=== PATIENT | male | born 1950 | race Caucasian/White ===

== ENCOUNTER 2025-06-09 23:00 | Inpatient (IN) | payer MEDICARE, BC, SELFPAY ==
[2025-06-09 20:56] VITALS: BP 150/137
[2025-06-09 20:57] VITALS: BP 150/137
[2025-06-09 21:02] LABS: Glucose - Point of Care 155 mg/dl (70-99)
--- NOTE | 2025-06-09 21:09 | ED.GENMED ---
History of Present Illness
<Maynor Pablo PA-C - Last Filed: 06/10/25 00:04>
General
Chief Complaint: Blood Sugar Problem
Source: patient and ambulance crew
Time Seen by Provider: 06/09/25 21:02
History of Present Illness
History of Present Illness:
75-year-old male with past medical history of hypertension, hyperlipidemia, insulin-dependent diabetes presenting to the ER for evaluation with EMS after a passerby found him on the ground, estimated to have been on the ground for about 4 to 4-1/2
hours, EMS noted patient to be very cold to the touch, had an initial blood sugar of 25, administered 25 mg dextrose with improvement of his blood sugars, patient states the last thing that he does remember is doing yard work outside but at present
time is no other concerns. Patient will answer most questions appropriately albeit his answers are very abrupt and 1-2 words only. Patient lives alone, notes that he does not have any family that is local. Patient denies any headaches, focal
weakness or numbness, extremity related complaints, abdominal pain, nausea, vomiting, chest pain or shortness of breath or any other concerns.
Past History
<Maynor Pablo PA-C - Last Filed: 06/10/25 00:04>
Past History
ED Past Medical History: HTN, Hypercholesterolemia and IDDM
ED Past Surgical History: Orthopedic and Tonsilectomy
Social History
Tobacco: Non-smoker
Alcohol: None
Drug: None
Personal: Single
Living: alone
Review of Systems
<Maynor Pablo PA-C - Last Filed: 06/10/25 00:04>
Review of Systems
All Other Systems: ROS reviewed and negative except as documented in HPI and ROS
Phy Exam
<Maynor Pablo PA-C - Last Filed: 06/10/25 00:04>
Physical Exam
Physical Exam:
GENERAL: Alert , in no apparent distress
EYE: clear conjunctiva b/l
HEAD: Abrasion just above the left eyebrow, dried blood but no active bleeding
ENT: o/p clr, mmm.
CARDIAC: bradycardic rate, regular rhythm
LUNGS: Clear breath sounds bilaterally, no acute respiratory distress, no wheezes/rales/rhonchi
ABDOMEN: Soft, without focal tenderness, no r/g, no cvat, negative Chen sign, no tenderness at McBurney's point
NEUROLOGICAL: Alert and oriented
SKIN: Warm and dry, skin intact. Older appearing area of ecchymosis to the right buttock, patient noted that he did fall previously but unable to tell us when
MUSCULOSKELETAL: No edema, well perfused.
PSYCH: Normal and appropriate interaction.
Scores
<Maynor Pablo PA-C - Last Filed: 06/10/25 00:04>
Heart Failure Risk
Heart Failure Risk Score: Not Applicable
Heart Score for Chest Pain Patients
STEMI patient?: Not applicable
Withdrawal Assessment of Alcohol
Withdrawal Assessment Completed?: Not applicable
Course
<Maynor Pablo PA-C - Last Filed: 06/10/25 00:04>
Orders/Labs/Results
Orders:
Orders
06/09/25 Dinner
Regular
At Your Request: Limited Participation
Does patient need a safe tray?: No
06/09/25 21:07
Patricia Hugger [Patricia Hugger-Treatment] ONCE
Patient's goal temperature:: 97 F
Additional Instructions:: Temperature and skin assessment per unit protocol
06/09/25 21:08
CT Head W/o Iv Contrast Urgent
Comment:
Reason For Exam: AMS, found on ground
CR Chest Portable - 1 View Urgent
Comment:
Reason For Exam: AMS, found on ground
Reason Study Needs to be Portable: Other
06/09/25 21:10
Electrocardiogram (*1) Urgent
Reason for Study: Bradycardia / Tachycardia
EKG- Treatment ONCE
06/09/25 21:15
CPK [Creatine Phosphokinase] Urgent
Complete Blood Count/With Diff Urgent
Comprehensive Metabolic Panel Urgent
Lactic Acid Q4H
Comment: CANCEL 2nd LACTIC ACID IF 1st LACTIC ACID IS LESS THAN 2
Magnesium Urgent
PTT Urgent
Prothrombin Time Urgent
TSH Urgent
Troponin I Urgent
Blood Culture Q30M
VICENTE Source: Blood/Venous
Specimen Description:
Blood Culture Q30M
VICENTE Source: Blood/Venous
Specimen Description:
06/09/25 22:29
Urinalysis Reflex To Culture Urgent
Date Specimen was Collected: 06/09/25
Time Specimen was Collected: 22:07
Urine Microscopic Reflex Cult Urgent
Urine Culture Urgent
VICENTE Source: U
Specimen Description:
Date Specimen was Collected: 06/09/25
Time Specimen was Collected: 22:07
06/09/25 22:30
Admit/Transfer Patient As Directed
Co-Sign Provider:
Level of Care: Inpatient admission
Assign to:: Telemetry
Physician / Group: lucie
Diagnosis: hypoglycemia
Reason for Telemetry: Arrhythmia
Date to Stop Telemetry: 06/12/25
Time to Stop Telemetry: 11:00
Reason for Hospitalization: hypoglycemia
Expected length of stay greater than two midnights?: Yes
ELOS- Estimated Length of Stay in days: 2
I certify the patient meets the requirements for IP care: Yes
Code Status As Directed
Resuscitation Status: Full Code
PRN Pain Medication Management As Directed
May give lesser potent ordered pain med per pt: Yes
preference::
Protocol:: Medication orders for pain may be administered in a
manner that supports deferring to patient preference
when the pt is:
- Requesting an ordered lesser potent pain medication.
Least to most potent pain medications are defined
as: acetaminophen < NSAID < tramadol < opioids
(morphine, oxycodone, hydromorphone).
- Requesting a lesser dose of the same medication IF
ORDERED.
- Requesting a less intrusive route of administration
if both routes are prescribed by the provider (PO <
IV).
06/09/25 22:32
0.9% Sodium Chloride 500 ml [Nss] 500 ml IV BOLUS
06/09/25 23:00
Flush (0.9% Sodium Chloride) [Flush (Nss)] See Dose Instructions IV PER PROTOCOL
06/09/25 23:39
0.9% Sodium Chloride 1000 ml [Nss] 1,000 ml IV 100 mls/hr
06/09/25 23:39
Diabetes Management by Nurse Practitioner Routine
Consulting Provider: Yue Marks
Was provider already notified?: No
Reason for Consult: Insulin Recommendation
Accucheck [Bedside Glucose Monitoring] As Directed
Frequency: q4h
Activity As Directed
Activity Level: As Tolerated
Vital Signs As Directed
Frequency: Per unit guidelines
DX Deep Vein Thrombosis Video Routine
06/10/25 06:00
Complete Blood Count/With Diff IN AM
Comprehensive Metabolic Panel IN AM
06/10/25 08:00
Heparin 5,000 units SC Q12
06/12/25 11:00
DC Protocol for Telemetry ONCE
Abnormal Lab Results
06/09/25 06/09/25 06/09/25
21:00 21:15 22:29
WBC 10.9 H 10^3/uL
(4.8-10.8)
RBC 4.64 L 10^6/uL
(4.70-6.10)
MCHC 32.4 L g/dL
(33.0-37.0)
Abs Immat Gran (auto) 0.1 H 10^3/uL
(0-0.05)
Absolute Neuts (auto) 8.4 H 10^3/uL
(1.4-6.5)
Absolute Monos (auto) 0.7 H 10^3/uL
(0.1-0.6)
Immature Gran % 0.6 H %
(0-0.5)
Neutrophils % 77.6 H %
(42.2-75.2)
Lymphocytes % 13.1 L %
(20.5-51.1)
BUN 32 H mg/dl
(9-20)
Creatinine 1.4 H mg/dL
(0.7-1.3)
Glucose 187 H mg/dl
(70-99)
Alkaline Phosphatase 190 H U/L
(38-126)
TSH 0.04 L uIU/ml
(0.47-4.68)
Urine Ketones 1+ A
(Negative)
Leukocyte Esterase Rfl 1+ A
(Negative)
Urine Bacteria (Reflex) Moderate A
(Negative)
Urine Glucose 2+ A
(Negative)
Urine Albumin (Reflex) 2+ A
(Neg - Trace)
POC Glucose 155 H mg/dl
(70-99)
06/09/25 21:15
06/09/25 21:15
Vital Signs
Initial and Last Documented VS:
Initial Vital Signs
Temp Pulse Resp BP Pulse Ox
91.3 F L 50 17 150/137 90
06/09/25 20:56 06/09/25 20:56 06/09/25 20:56 06/09/25 20:56 06/09/25 20:56
Last Documented Vital Signs
Temp Pulse Resp BP Pulse Ox
97.3 F 51 14 120/60 97
06/09/25 23:58 06/09/25 23:58 06/09/25 23:58 06/09/25 23:58 06/09/25 23:58
<Tay Jo MD - Last Filed: 06/10/25 01:07>
Orders/Labs/Results
Orders:
Orders
06/09/25 Dinner
Regular
At Your Request: Limited Participation
Does patient need a safe tray?: No
06/09/25 21:07
Patricia Hugger [Patricia Hugger-Treatment] ONCE
Patient's goal temperature:: 97 F
Additional Instructions:: Temperature and skin assessment per unit protocol
06/09/25 21:08
CT Head W/o Iv Contrast Urgent
Comment:
Reason For Exam: AMS, found on ground
CR Chest Portable - 1 View Urgent
Comment:
Reason For Exam: AMS, found on ground
Reason Study Needs to be Portable: Other
06/09/25 21:10
Electrocardiogram (*1) Urgent
Reason for Study: Bradycardia / Tachycardia
EKG- Treatment ONCE
06/09/25 21:15
CPK [Creatine Phosphokinase] Urgent
Complete Blood Count/With Diff Urgent
Comprehensive Metabolic Panel Urgent
Lactic Acid Q4H
Comment: CANCEL 2nd LACTIC ACID IF 1st LACTIC ACID IS LESS THAN 2
Magnesium Urgent
PTT Urgent
Prothrombin Time Urgent
TSH Urgent
Troponin I Urgent
Blood Culture Q30M
VICENTE Source: Blood/Venous
Specimen Description:
Blood Culture Q30M
VICENTE Source: Blood/Venous
Specimen Description:
06/09/25 22:29
Urinalysis Reflex To Culture Urgent
Date Specimen was Collected: 06/09/25
Time Specimen was Collected: 22:07
Urine Microscopic Reflex Cult Urgent
Urine Culture Urgent
VICENTE Source: U
Specimen Description:
Date Specimen was Collected: 06/09/25
Time Specimen was Collected: 22:07
06/09/25 22:30
Admit/Transfer Patient As Directed
Co-Sign Provider:
Level of Care: Inpatient admission
Assign to:: Telemetry
Physician / Group: lucie
Diagnosis: hypoglycemia
Reason for Telemetry: Arrhythmia
Date to Stop Telemetry: 06/12/25
Time to Stop Telemetry: 11:00
Reason for Hospitalization: hypoglycemia
Expected length of stay greater than two midnights?: Yes
ELOS- Estimated Length of Stay in days: 2
I certify the patient meets the requirements for IP care: Yes
Code Status As Directed
Resuscitation Status: Full Code
PRN Pain Medication Management As Directed
May give lesser potent ordered pain med per pt: Yes
preference::
Protocol:: Medication orders for pain may be administered in a
manner that supports deferring to patient preference
when the pt is:
- Requesting an ordered lesser potent pain medication.
Least to most potent pain medications are defined
as: acetaminophen < NSAID < tramadol < opioids
(morphine, oxycodone, hydromorphone).
- Requesting a lesser dose of the same medication IF
ORDERED.
- Requesting a less intrusive route of administration
if both routes are prescribed by the provider (PO <
IV).
06/09/25 22:32
0.9% Sodium Chloride 500 ml [Nss] 500 ml IV BOLUS
06/09/25 23:00
Flush (0.9% Sodium Chloride) [Flush (Nss)] See Dose Instructions IV PER PROTOCOL
06/09/25 23:39
0.9% Sodium Chloride 1000 ml [Nss] 1,000 ml IV 100 mls/hr
06/09/25 23:39
Diabetes Management by Nurse Practitioner Routine
Consulting Provider: Douse,Yue
Was provider already notified?: No
Reason for Consult: Insulin Recommendation
Accucheck [Bedside Glucose Monitoring] As Directed
Frequency: q4h
Activity As Directed
Activity Level: As Tolerated
Vital Signs As Directed
Frequency: Per unit guidelines
DX Deep Vein Thrombosis Video Routine
06/10/25 06:00
Complete Blood Count/With Diff IN AM
Comprehensive Metabolic Panel IN AM
06/10/25 08:00
Heparin 5,000 units SC Q12
06/12/25 11:00
DC Protocol for Telemetry ONCE
Abnormal Lab Results
06/09/25 06/09/25 06/09/25
21:00 21:15 22:29
WBC 10.9 H 10^3/uL
(4.8-10.8)
RBC 4.64 L 10^6/uL
(4.70-6.10)
MCHC 32.4 L g/dL
(33.0-37.0)
Abs Immat Gran (auto) 0.1 H 10^3/uL
(0-0.05)
Absolute Neuts (auto) 8.4 H 10^3/uL
(1.4-6.5)
Absolute Monos (auto) 0.7 H 10^3/uL
(0.1-0.6)
Immature Gran % 0.6 H %
(0-0.5)
Neutrophils % 77.6 H %
(42.2-75.2)
Lymphocytes % 13.1 L %
(20.5-51.1)
BUN 32 H mg/dl
(9-20)
Creatinine 1.4 H mg/dL
(0.7-1.3)
Glucose 187 H mg/dl
(70-99)
Alkaline Phosphatase 190 H U/L
(38-126)
TSH 0.04 L uIU/ml
(0.47-4.68)
Urine Ketones 1+ A
(Negative)
Leukocyte Esterase Rfl 1+ A
(Negative)
Urine Bacteria (Reflex) Moderate A
(Negative)
Urine Glucose 2+ A
(Negative)
Urine Albumin (Reflex) 2+ A
(Neg - Trace)
POC Glucose 155 H mg/dl
(70-99)
06/09/25 21:15
06/09/25 21:15
Vital Signs
Initial and Last Documented VS:
Initial Vital Signs
Temp Pulse Resp BP Pulse Ox
91.3 F L 50 17 150/137 90
06/09/25 20:56 06/09/25 20:56 06/09/25 20:56 06/09/25 20:56 06/09/25 20:56
Last Documented Vital Signs
Temp Pulse Resp BP Pulse Ox
97.3 F 51 14 120/60 97
06/09/25 23:58 06/09/25 23:58 06/09/25 23:58 06/09/25 23:58 06/09/25 23:58
<Maynor Pablo PA-C - Last Filed: 06/10/25 00:04>
MDM/Problems Addressed
Differential Diagnosis Includes:
Hyper/hypoglycemia
Syncope
Intracranial bleeding
Calvarial fracture
Urinary tract infection
Pneumonia
Cardiac arrhythmia/dysrhythmia
Medication interaction
MDM/Problems Addressed:
75-year-old male presenting to the emergency department for evaluation after being found down on the ground by a passerby on his property, estimated to be on the ground for 4 to 4-1/2 hours. Patient current rectal temperature of just above 91
degrees. Multiple blankets were provided prior to arrival, will also place patient with a bear hugger to warm. Sepsis workup initiated. Stat CT of the head ordered. Patient is bradycardic, unclear if syncope caused by bradycardia. Anticipate
admission
Chronic conditions affecting care: DM
Acute Exacerbation and/or Progression of Chronic Illness: DM
<Maynor Pablo PA-C - Last Filed: 06/10/25 00:04>
*Radiology
Radiology exam reviewed: radiology read reviewed
*Pulse Oximetry
SaO2: 90
Oxygen Mode of Delivery: Room air
Patient hypoxic: no
*Hydrologic Engineer Interpretation
Rate: bradycardiac
Heart Rate: 46
Rhythm: sinus
*Critical Care Note
Total Time (30-74mins, 75-104mins- exclusive of procedures): 30
comment:
Critical care statement: A total of 30 minutes of critical care time was provided for this patient. This includes management of unstable vital signs, evaluation of the patient at bedside, reviewing the patient's pertinent medical records, discussion
with consultants, review of old EKGs and review of pertinent medical records. This time with separate from time utilized to perform the aforementioned documented procedures
Data Reviewed
Review of Other/Old Records Reveals: Labs
Source: patient and ambulance crew
<Maynor Pablo PA-C - Last Filed: 06/10/25 00:04>
Patient Management
Social determinants of health affecting care: Living situation, Poor outpatient follow-up and Poor social support
Discussion with other providers: Hospitalist
Escalation/DeEscalation of care consider admission/obs:
Hospitalist team notified and accepts for continued evaluation and treatment
ED Attending Note
<Maynor Pablo PA-C - Last Filed: 06/10/25 00:04>
-
Portions of this chart may have been created with voice recognition software.� Occasional wrong word or��sound alike� substitutions may have occurred due to the inherent limitations of voice recognition software.
<Tay Jo MD - Last Filed: 06/10/25 01:07>
ED Attending Note
Patient seen and examined by attending physician: Yes
ED Attending Note:
Patient presents to ED for evaluation after he was found outside his house by his neighbor. When medics arrived at scene, patient was arousable with initial blood sugar of 25. Patient was given D10 solution by paramedics, with mild improvement in
symptoms. Upon arrival in ED, patient is found to be hypothermic with slow response to questions. Patient denies headache. Denies chest pain. Denies coughing. Denies abdominal pain.
Physical Exam
General: mild distress, not acutely ill. afebrile. cool to touch
Head: nc/at. eomi
Neck: supple. no meningeal signs.
Heart: s1/s2 regular rate and rhythm
Lungs: no acute respiratory distress. clear bilaterally
Abdomen: normal bowel sounds. not tender.
Neuro: alert and oriented x 3. no focal neurological deficits but slow to respond
Skin: no rash
Psychiatric: well kept. interactive and cooperative
Extremities: no edema. no calf tenderness.
Patient with hypothermia along with hypoglycemia, with concern for potential sepsis. Patient placed on Patricia hugger and started on IV fluids. Blood culture pending. Patient will be admitted for further evaluation and treatment.
Discharge Plan
Departure
Patient Disposition: Admit
Date of Disposition: 06/09/25
Time of Disposition: 22:06
Presentation/result/management discussed w/ accepting MD/DO: Hospitalist
Discharge Problem:
Hypoglycemia, Syncope, AUGUSTIN (acute kidney injury)
Interventions
Interventions:
*Risk Screen - Suicide Last Done: 06/10/25 00:21
*General Assessment Last Done: 06/09/25 21:38
*Neglect/Abuse Screening Last Done: 06/09/25 21:38
*ED- Fall Risk Assessment Last Done: 06/09/25 21:38
*ED COVID-19 Vaccine History Last Done: 06/10/25 00:21
*Nursing Disposition Last Done: 06/09/25 23:16
ED- Neurological Assessment Last Done: 06/09/25 21:38
Discharge Date and Time
Discharge Date/Time: 06/09/25 23:17
[2025-06-09 21:26] LABS: Hematocrit 41.1 % (39.0-52.0); Hemoglobin 13.3 g/dL (13.0-18.0); Mean Corp Hgb Conc. 32.4 g/dL (33.0-37.0); Mean Corpuscular Volume 88.6 fL (80.0-94.0); Nucleated Red Blood Cells % 0 % (-); Platelet Count 328 10^3/uL (130-400); Red Cell Dist. Width 13.1 % (11.5-14.5)
[2025-06-09 21:33] LABS: APTT 28.8 Sec (23.4-35.0); INR 1.07; PT 14.2 Sec (11.4-14.6)
[2025-06-09 21:37] VITALS: BMI 26.2
[2025-06-09 21:39] LABS: ALT (SGPT) 39 U/L (0-50); AST (SGOT) 41 U/L (17-59); Albumin 4.0 g/dl (3.5-5.0); Alkaline Phosphatase 190 U/L (38-126); Blood Urea Nitrogen 32 mg/dl (9-20); Calcium 9.3 mg/dl (8.4-10.2); Carbon Dioxide 29 mmol/L (22-30); Chloride 104 mmol/L (98-107); Estimated Creatinine Clearance 41 ml/min; Glucose 187 mg/dl (70-99); Magnesium 2.2 mg/dl (1.6-2.3); Potassium 4.0 mmol/L (3.5-5.1); Sodium 137 mmol/L (135-145); Total Protein 6.6 g/dl (6.3-8.2); eGFR 51.77
[2025-06-09 21:47] LABS: Troponin I < 0.012 ng/ml
[2025-06-09 22:00] VITALS: BP 90/56
[2025-06-09 22:10] LABS: TSH 0.04 uIU/ml (0.47-4.68)
[2025-06-09 22:17] VITALS: BP 108/61
--- NOTE | 2025-06-09 22:33 | HPS.HSE ---
Family Physician
-
Family Physician: NOT KNOW UNKNOWN - PT DOES
Chief Complaint
-
passing out
History of Present Illness
75-year-old male past medical history of type 1 diabetes with insulin pump, hypertension, hyperlipidemia, renal cell carcinoma status post surgery, presenting via EMS after passerby found him on the ground. He was estimated to be on the ground for
4 hours. EMS noted him to be cool to the touch and he had a blood sugar of 25 and he was given 25 mg of dextrose with improvement in blood sugars. Patient states that the last thing he remembers is doing yard work outside and falling down and
passing out. He lives alone and does not have any local family.
He saw his cement railroad car loader 2 weeks ago and was recommended to adjust his insulin pump settings although he does not remember what the change was.
He has some mild headache. He feels mentally foggy with memory impairment which is new. Denies numbness or tingling or abdominal pain or nausea or vomiting or chest pain or shortness of breath or diarrhea or vomiting. He feels cold.
He does not smoke or drink alcohol.
Medical History
Past Medical History
Past Medical History: Reports Other (type 1 diabetes with insulin pump, hypertension, hyperlipidemia, renal cell carcinoma status post surgery)
Past Surgical History: Reports Other (renal cell carcinoma surgery )
Social History
Tobacco: Non-smoker
Alcohol: None
Drug: None
Family History
Family History: Not pertinent
Allergies / Home Medications
Allergies reflects when Allergies were last updated in [facility].
Home Medications with original date entered in [facility]
Allergy/Medication List:
Allergies
Allergy/AdvReac Type Severity Reaction Status Date / Time
No Known Allergies Allergy Verified 06/09/25 22:13
Home Medications
Hct DAILY 08/07/11
SIMVASTATIN PO DAILY 08/07/11
salicylic acid 26 % topical liquid (Durasal) 1 drp LEFT EYE BID 11/18/11
Review of Systems
-
History Source: Patient
A 12 point ROS was completed and negative except as noted: Yes
Constitutional: Reports No Symptoms
EENT: Reports No Symptoms
Respiratory: Reports No Symptoms
Cardiac: Reports No Symptoms
Abdomen/GI: Reports No Symptoms
: Reports No Symptoms
Musculoskeletal: Reports No Symptoms
Skin: Reports No Symptoms
Neurological: Reports See HPI
Endocrine: Reports No Symptoms
Hematologic/Lymphatic: Reports No Symptoms
Psych: Reports No Symptoms
Physical Exam
Vital Signs
Vital Signs
Temp Pulse Resp BP Pulse Ox
91.3 F L 54 14 108/61 100
06/09/25 20:56 06/09/25 22:17 06/09/25 22:17 06/09/25 22:17 06/09/25 22:17
Physical Exam
General: Well Developed, Well Nourished and No Apparent Distress
HEENT: NormoCephalic, Moist mucous membranes and Atraumatic
Respiratory: Clear
Cardiac: S1/S2 and Regular Rhythm; No Murmur or Rub
GI: Soft, Non Tender, Non Distended and Normal Bowel Sounds; No Organomegaly
Rectal: Deferred by Provider
Musculoskeletal: No Clubbing, No Cyanosis and No Edema
Skin: Other (left scalp laceration ); No Rash
Neuro: Nonfocal/grossly intact
Laboratory Results
-
06/09/25 21:15
06/09/25 21:15
Laboratory Results
PT 14.2 Sec (11.4-14.6) 06/09/25 21:15
INR 1.07 06/09/25 21:15
APTT 28.8 Sec (23.4-35.0) 06/09/25 21:15
Lactic Acid 0.9 mmol/L (0.7-2.0) 06/09/25 21:15
Total Bilirubin 0.9 mg/dl (0.2-1.3) 06/09/25 21:15
AST 41 U/L (17-59) 06/09/25 21:15
ALT 39 U/L (0-50) 06/09/25 21:15
Alkaline Phosphatase 190 U/L (38-126) H 06/09/25 21:15
Troponin I < 0.012 ng/ml 06/09/25 21:15
Data Reviewed
-
Lab Data: Labs Reviewed by me
Old Records: Reviewed
Impression/Plan
-
IMPRESSION:
PLAN:
# Syncopal episode secondary to severe hypoglycemia with scalp laceration
# Hypothermia from hypoglycemia
# Bradycardia secondary to hypoglycemia
# Type 1 diabetes with insulin pump
-Hypoglycemia resolved
-CT head shows no acute intracranial abnormality
- TSH, urinalysis, blood cultures, chest x-ray pending
-Check EKG
- Patricia hugger
-Blood sugar 187 here
-Accu-Cheks every 4 hours
- Diabetic SPUN PASTE MACHINE OPERATOR consulted
# Memory impairment secondary to hypoglycemia versus concussion from syncope and head injury
- CT head negative for acute abnormality
- Hopefully should improve with time
# Acute kidney injury likely prerenal
- IV fluids
Essential hypertension
Hyperlipidemia
- Continue statin
Renal cell carcinoma status post resection
Glaucoma
Full code
DVT prophylaxis�heparin
Regular diet
[2025-06-09] MEDS: NSS 500 IV (22:37)
[2025-06-09 22:39] LABS: Urine Character Clear (Clear)
[2025-06-09 22:45] LABS: Urine Red Blood Cell 0-2 /HPF (0-2)
[2025-06-09 23:46] LABS: Glucose - Point of Care 81 mg/dl (70-99)
[2025-06-09] MEDS: NSS 1000 IV (23:51)
[2025-06-09 23:56] VITALS: BMI 27.2
[2025-06-09 23:58] VITALS: BP 120/60
--- NOTE | 2025-06-10 00:17 | PTCARENOTE ---
Patient arrived via stretcher with dx of hypoglycemia. AAOx2-3. Patient forgetful and confused at times. Denies pain or discomfort. Patient insulin pump disconnected prior to admission to unit. Insulin pump tubing and monitor remain in place to LUQ
of abdomen. BS on arrival 81. Patient requested and given snack. Patient ' not confident' in home doses of medications at this time stating ' my head is still foggy.' Bed alarm applied. Educated on using call ingram for assist. Call ingram within reach.
[2025-06-10 03:29] VITALS: BP 114/60
[2025-06-10 03:48] LABS: Glucose - Point of Care 253 mg/dl (70-99)
[2025-06-10 06:34] LABS: Hematocrit 40.8 % (39.0-52.0); Hemoglobin 13.4 g/dL (13.0-18.0); Mean Corp Hgb Conc. 32.8 g/dL (33.0-37.0); Mean Corpuscular Volume 89.3 fL (80.0-94.0); Nucleated Red Blood Cells % 0 % (-); Platelet Count 341 10^3/uL (130-400); Red Cell Dist. Width 13.2 % (11.5-14.5)
[2025-06-10 06:58] LABS: ALT (SGPT) 33 U/L (0-50); AST (SGOT) 36 U/L (17-59); Albumin 3.8 g/dl (3.5-5.0); Alkaline Phosphatase 207 U/L (38-126); Blood Urea Nitrogen 38 mg/dl (9-20); Calcium 9.3 mg/dl (8.4-10.2); Carbon Dioxide 21 mmol/L (22-30); Chloride 107 mmol/L (98-107); Estimated Creatinine Clearance 37 ml/min; Glucose 315 mg/dl (70-99); Potassium 6.1 mmol/L (3.5-5.1); Sodium 139 mmol/L (135-145); Total Protein 6.2 g/dl (6.3-8.2); eGFR 47.65
[2025-06-10 07:05] VITALS: BP 115/47
[2025-06-10 08:14] LABS: Glucose - Point of Care 309 mg/dl (70-99)
[2025-06-10] MEDS: NOVOLOG FLEXPEN-LOW RESISTANCE 4 UNITS SC (08:15)
[2025-06-10] MEDS: HEPARIN 5000 UNITS SC ×2 (08:16→19:45)
[2025-06-10] MEDS: LOKELMA 10 GRAM PO (08:16)
--- NOTE | 2025-06-10 08:32 | W.PN.HOSP.TC ---
Today's Communication/Plan
-
BG now elevated, start Lantus/lispro he does not have his pump supplies.
cont fluids for AUGUSTIN
Recheck TSH/T4
Assessment / Plan
Assessment / Plan
75M w/ type 1 diabetes with insulin pump, HTN, HLD, renal cell carcinoma s/p surgery p/w LOC, admitted for hypoglycemia.
# Syncopal episode secondary to severe hypoglycemia
In setting of insulin pump for type 1 diabetes, overexertion outside (yardwork).
Patient sustained scalp laceration
Patient is now hyperglycemic. Resultant hypothermia and bradycardia have resolved.
-CXR/CT head shows no acute intracranial abnormality. BCx, UCX pending. UA not C/W infection
- TSH very low at 0.04
Patient does not have his supplies for his pump at the moment.
Patient's blood sugars have been difficult to control at home, he notes elevated blood sugars about 2 hours after every meal, has been taking 0.75 units/h basal rate, recently was told by his editorial clerk Dr. Tien Deluna from [place] to
reduce to 0.65, but has not yet done that, also takes anywhere between 2 and 8 units of insulin with meals depending on carbs. Previously had some presyncopal/hypoglycemic episodes after jogging.
will start with Lantus 10 units twice daily (lower than equivalent home dose) and 5 units lispro with meals, sliding scale insulin
- Diabetic PROMOTIONS EXECUTIVE consulted
#decreased TSH
Check repeat, check T4
# Acute kidney injury on CKD likely prerenal
- IV fluids
Patient reports he has CKD, will attempt to obtain old records
#leukocytosis
UA with 1+ LE but no sig WBC
cxr clear
blood and ucx pending
#hyperkalemia
-lokelma
repeat BMP in 4h
Essential hypertension
Hold BP meds at the moment as BP is well-controlled
Resume amlodipine, valsartan hydrochlorothiazide when needed. Med list not reconciled yet, have discussed with RN to get it reconciled.
Hyperlipidemia
- Continue statin
Renal cell carcinoma status post resection
Outpatient follow-up
Full code
DVT prophylaxis�heparin
Anticipated Discharge: 24 - 48 hours
Subjective/Interval History
-
Date of Service: June 10, 2025
Patient feels well denies any acute issues at the moment. He does not have his pump supplies with him so we cannot use his pump until he gets home.
Objective Data
-
Labs:
Laboratory Results
06/09/25 06/10/25
21:15 05:49
WBC 10.9 H 16.0 H
Hgb 13.3 13.4
Hct 41.1 40.8
Plt Count 328 341
PT 14.2
INR 1.07
APTT 28.8
Sodium 137 139
Potassium 4.0 6.1 H* D
Chloride 104 107
Carbon Dioxide 29 21 L
BUN 32 H 38 H
Creatinine 1.4 H 1.5 H
Glucose 187 H 315 H
Calcium 9.3 9.3
Total Bilirubin 0.9 1.7 H
AST 41 36
ALT 39 33
Alkaline Phosphatase 190 H 207 H
Vital Signs:
Vital Signs
Temp Pulse Resp BP Pulse Ox
98.3 F 75 18 115/4 95
06/10/25 07:05 06/10/25 07:05 06/10/25 07:05 06/10/25 07:05 06/10/25 07:05
Review of Systems
-
All other systems: Reviewed and negative
Physical Exam
-
General: No Apparent Distress
HEENT: Moist Mucous Membranes, Anicteric, PERRLA and Other (Left forehead laceration, no active bleeding.)
Respiratory: Clear to Auscultation; Negative Wheezes, Rales or Rhonchi
Cardiac: Regular Rhythm and S1/S2; Negative Murmur, Rub or Gallop
GI: Soft, Nontender, Nondistended and Normal Bowel Sounds
Musculoskeletal: No Edema
Skin: Warm and Dry; Negative Rash or Ulcers
Neuro: Awake and AO x 3
Hematologic / Lymphatic: No Lymphadenopathy
Psych: Calm
Data Reviewed
-
Diagnostic Radiology: Report Reviewed by me
CT Scan: Report Reviewed by me
Labs: Labs Reviewed by me and Discussed with Patient
[2025-06-10] MEDS: NSS 1000 IV ×2 (09:20→22:03)
--- NOTE | 2025-06-10 10:45 | CM ---
CM met with pt at bedside.
Pt resides alone in a 2 SH. Bedroom/bathroom on 2nd floor. MA on 1st. No AD for ambulation. Ind with amb/adls.
Confirmed PCP is Darren Roper. Pharmacys is [facility] on [address]
Reports + prescription plan ([employer]).
Has no HC or SNF history.
Inquired how his sugar got so low without notice from the dexcom and told believes the phone was too far from his watch so he did not receive the bluetooth alert while doing yardwork.
No skilled dc needs anticipated at discharge.
Would like to know what he should do about his covid booster appt tomorrow at [facility]. Defer to attending Doctor. Message sent TT.
[2025-06-10 11:01] LABS: Glucose - Point of Care 377 mg/dl (70-99)
[2025-06-10 11:15] VITALS: BP 112/46
[2025-06-10] MEDS: NOVOLOG FLEXPEN 5 UNITS SC (11:54)
[2025-06-10] MEDS: LANTUS 0.1 UNITS SC (12:04)
--- NOTE | 2025-06-10 12:15 | PTCARENOTE ---
Accucheck was 377. Orders given from Dr. Milligan for one time 5 units novolog and 10 units lantus BID.
[2025-06-10 14:36] LABS: Glucose - Point of Care 401 mg/dl (70-99)
[2025-06-10 15:15] VITALS: BP 125/59
[2025-06-10 15:18] LABS: Glucose 439 mg/dl (70-99)
[2025-06-10] MEDS: NOVOLOG FLEXPEN-LOW RESISTANCE 6 UNITS SC (15:44)
--- NOTE | 2025-06-10 16:00 | PTCARENOTE ---
Stat venous blood glucose was 439. Dr. Milligan notified who asked that current orders be followed for insulin dose which was 6 units per sliding scale protocol.
[2025-06-10 17:46] LABS: Glucose - Point of Care 487 mg/dl (70-99)
[2025-06-10 18:26] LABS: Glucose 548 mg/dl (70-99)
[2025-06-10 19:00] VITALS: BP 119/55
--- NOTE | 2025-06-10 19:00 | PTCARENOTE ---
Pt having late dinner. Accucheck read RR Hi. Venous blood glucose 548. Pt states he does not have symptoms of hyperglycemia at this time and feels well but is anxious to get blood sugars under control. Attempted to reach primary hospitalist and
cross coverage via tiger text without being able to obtain orders by end of shift. Oncoming RN contacting night [facility].
[2025-06-10] MEDS: NOVOLOG FLEXPEN 15 UNITS SC (19:44)
[2025-06-10] MEDS: NOVOLOG FLEXPEN-LOW RESISTANCE SC (19:52)
[2025-06-10 21:31] LABS: Glucose - Point of Care 449 mg/dl (70-99)
[2025-06-10 22:18] LABS: Glucose 501 mg/dl (70-99)
[2025-06-10] MEDS: LANTUS 0.15 UNITS SC (22:25)
[2025-06-10] MEDS: NOVOLOG FLEXPEN 20 UNITS SC (22:29)
[2025-06-10 23:00] VITALS: BP 102/46
[2025-06-10 23:36] LABS: Blood Urea Nitrogen 46 mg/dl (9-20); Calcium 8.2 mg/dl (8.4-10.2); Carbon Dioxide 21 mmol/L (22-30); Chloride 103 mmol/L (98-107); Estimated Creatinine Clearance 37 ml/min; Potassium 4.6 mmol/L (3.5-5.1); Sodium 130 mmol/L (135-145); eGFR 47.65
[2025-06-11 00:26] LABS: Glucose - Point of Care 208 mg/dl (70-99)
[2025-06-11 01:32] LABS: Glucose - Point of Care 127 mg/dl (70-99)
[2025-06-11 02:23] LABS: Glucose - Point of Care 85 mg/dl (70-99)
--- NOTE | 2025-06-11 02:57 | PTCARENOTE ---
Addendum entered by Berenice Russell RN 06/11/25 03:08:
Blood sugar assessed at 0300 per PRE BILLING CLINICIAN with result of 107. Patient continues to deny symptoms at this time.
Original Note:
Contacted PRE BILLING CLINICIAN at beginning of shift of patient high blood glucose. STAT 15 units Novolog ordered. Patients Blood sugar rechecked 2 hours later per PRE BILLING CLINICIAN with HI reading on monitor. STAT venous draw obtained with result of 501. Patient continues to
deny symptoms . PRE BILLING CLINICIAN notified and ordered another STAT dose of 20 units Novolog along with bedtime Lantus. Blood sugar rechecked 2 hours later per PRE BILLING CLINICIAN, with result of 208. Patient woke at 01:30 requesting blood sugar to be checked with result of
127 and then again patient requested to be checked at 02:30 with result of 85. Patient given snack and juice. Patient continues to deny symptoms.
[2025-06-11 03:00] VITALS: BP 103/74
[2025-06-11 03:08] LABS: Glucose - Point of Care 107 mg/dl (70-99)
--- NOTE | 2025-06-11 06:48 | W.PN.UPDATE ---
Update Note
Progress Note Update
Bedside glucose readings upwards to 500s. Patient insulin pump is non-operational. Increased to high dose coverage and Lantus to 15 units BID. He is 107 this am.
[2025-06-11 06:53] LABS: Hematocrit 35.4 % (39.0-52.0); Hemoglobin 11.8 g/dL (13.0-18.0); Mean Corp Hgb Conc. 33.3 g/dL (33.0-37.0); Mean Corpuscular Volume 88.1 fL (80.0-94.0); Platelet Count 326 10^3/uL (130-400); Red Cell Dist. Width 13.2 % (11.5-14.5)
[2025-06-11 07:07] LABS: Blood Urea Nitrogen 41 mg/dl (9-20); Calcium 8.6 mg/dl (8.4-10.2); Carbon Dioxide 25 mmol/L (22-30); Chloride 108 mmol/L (98-107); Estimated Creatinine Clearance 47 ml/min; Glucose 137 mg/dl (70-99); Potassium 4.1 mmol/L (3.5-5.1); Sodium 137 mmol/L (135-145); eGFR > 60.00
[2025-06-11 07:17] LABS: Glucose - Point of Care 125 mg/dl (70-99)
[2025-06-11 07:29] VITALS: BP 119/61
[2025-06-11] MEDS: NSS 1000 IV (07:54)
--- NOTE | 2025-06-11 08:13 | PN.DE.MGMTRT ---
Addendum entered and electronically signed by MICHELLE Pemberton 06/11/25 13:47:
Pre lunch blood sugar is 276 via hospital AccuChek machine. pt reports glucose of 297 via his CGM. Discussed with pt, states he is not hungry as he finished his breakfast 1 hrs ago.
Will treat blood sugar based on his correction factor of 1:50. Pt to receive 3 units of SQ NovoLog from the nurse
Discussed with Hospitalist and Nurse.
Plan for discharge home today.
Original Note:
Insulin Management
- -
06/11/2025: Diabetes Management Consult
75 year old male with PMH: Type 1 diabetes with insulin pump, HTN, HLD, renal cell carcinoma s/p surgery p/w LOC, admitted for Syncopal episode 2/2 severe hypoglycemia in setting of insulin pump use. He was estimated to be on the ground for 4 hours.
EMS noted him to be cool to the touch and he had a blood sugar of 25 and he was given 25 mg of dextrose with improvement in blood sugars. Patient states that the last thing he remembers is doing yard work outside and falling down and passing out.
He lives alone and does not have any local family.
He use T-Slim with sure steel, Humalog and Dexcom G7. A1C 6.7%, Cr 1.2, eGFR >60
Patient's blood sugars have been difficult to control at home, he notes elevated blood sugars about 2 hours after each meal. Has been taking 0.75 units/h basal rate, recently saw his patternmaker sample Dr. Tien Deluna from [facility] and was told to
reduce his basal rate to 0.65, but has not yet done that, also takes anywhere between 2 and 8 units of insulin with meals depending on carbs. He reports recurrent episodes of presyncopal/hypoglycemic related to exertional exercise-pt jogs 3 miles
daily.
Patient awake, alert, oriented, resting in bed, offers no complaints, able to discuss diabetes care plan, eager to go home today.
Pt states his blood sugar was elevated yesterday and through the night because he did not receive insulin for 12 hrs.
He is noted for persistent hyperglycemia. Hospitalist started him on basal bolus insulin.
He does not have his supplies or insulin(Humalog) for his pump at the moment. I was able to obtain pump supplies from the office and Pharmacy was able to supply NovoLog but pt declined, stating that he rather use his insulin and will wait until he
gets home.
Pt has a SQ insulin regimen that includes Lantus 24 units @ HS and NovoLog 6-8 units with meals that his Endo instructed him to use when his pump malfunctions.
His glucose @ HS was 449, received Lantus 15 units, FBG 137 V, 175 POC.
Will start NovoLog 5 units AC. No additional basal insulin to be given at this time, in anticipation for discharge home since pump will be resumed.
Will give Lantus 24 units @ HS if pt stays overnight.
pump settings are as follows:
Basal ICR ISF Target
8:30-12p 0.75 1:6 1:50 120
12p- 5p 0.75 1:15 1:50 120
5p - 12A 0.75 1:10 1:50 120
12a - 830A 0.7 1:12 1:50 120
Total 24 insulin 17.575
Diabetes History
- -
Type of Diabetes: 1
Pre-Admission Diabetes Regimen
06/10/25 06/10/25 06/11/25
21:45 22:46 05:47
Creatinine 1.5 H Cancelled 1.2
Insulin Pump Settings
IP Diabetes Regimen
06/10/25 06/10/25 06/10/25
08:12 11:00 14:34
Glucose
POC Glucose 309 H 377 H 401 H
06/10/25 06/10/25 06/10/25
14:42 17:44 17:56
Glucose 439 H 548 H*
POC Glucose 487 H*
06/10/25 06/10/25 06/10/25
21:30 21:45 22:46
Glucose 501 H* Cancelled
POC Glucose 449 H
06/11/25 06/11/25 06/11/25
00:24 01:31 02:22
Glucose
POC Glucose 208 H 127 H 85
06/11/25 06/11/25 06/11/25
03:07 05:47 07:16
Glucose 137 H
POC Glucose 107 H 125 H
Meal type: Breakfast
Amount consumed: 85%
Patient Education
[2025-06-11] MEDS: HEPARIN 5000 UNITS SC (08:34)
[2025-06-11] MEDS: LANTUS SC (08:51)
[2025-06-11 10:20] LABS: Glycohemoglobin (HgbA1c) 6.7 % (4.0-5.6)
[2025-06-11] MEDS: NOVOLOG FLEXPEN 5 UNITS SC (11:23)
[2025-06-11 11:36] VITALS: BP 128/61
[2025-06-11 13:05] LABS: Glucose - Point of Care 276 mg/dl (70-99)
[2025-06-11] MEDS: NOVOLOG FLEXPEN-LOW RESISTANCE 3 UNITS SC (13:07)
--- NOTE | 2025-06-11 14:23 | W.DCSUMMARY ---
Discharge Summary
Discharge Data
Date of Admission: 06/09/25
Date of Discharge: 06/11/25
Total time spent discharging patient (in min): 44
-
Pending Results: No
Hospital Course
Mr. Saha is a 75-year-old male with medical history of type 1 diabetes mellitus (uses an insulin pump), hypertension, and renal cell carcinoma (status post surgery) who presented via EMS after being found unresponsive presumably due to profound
hypoglycemia. His initial blood glucose reading was 25. He was given IV dextrose with improvement in his blood glucose and mental status. His insulin pump was disconnected by EMS. On initial labs he had a mild AUGUSTIN with creatinine of 1.4 which
resolved to within normal limits after IV fluids. He was also briefly hyperkalemic with a potassium of 6.1 which resolved with IV fluids and Lokelma. He had a small abrasion on his forehead likely due to his hypoglycemia induced loss of
consciousness and fall. CT imaging of his brain showed no acute intracranial abnormality. Recommend local wound care as needed with [id number] medications. Reportedly his blood glucose has been recently difficult to control. He was told 2
weeks prior to this event by his document design specialist to adjust his insulin pump settings to a basal rate of 0.65, but had not yet done so. Since hospital admission, he was started on a regimen of long and short acting insulin with guidance from the
diabetes nurse practitioner. His blood glucose has been better controlled. He will be discharged home and restart using his insulin pump with additional long and short acting insulin as needed. He will need to follow-up closely with his
document design specialist for ongoing adjustments to his regimen as needed. He was medically stable at time of hospital discharge.
General: No Apparent Distress, Comfortable and Conversant
HEENT: NormoCephalic, Moist mucous membranes, small abrasion on forehead
Respiratory: Clear and Non Labored Respirations
Cardiac: S1/S2 and Regular Rhythm; No Rub or Gallop
GI: Soft, Non Tender, Non Distended and Normal Bowel Sounds
Musculoskeletal: No Edema, no deformity
: NO [place]ford
Neuro: Awake, Alert, Nonfocal/grossly intact
Psych: Calm and cooperative
Discharge Plan
-
Patient Disposition: Home (Routine Discharge)
Discharge Diagnosis/Procedures: Symptomatic hypoglycemia
Activity Restrictions/Additional Instructions:
Mr. Saha is a 75-year-old male with medical history of type 1 diabetes mellitus (uses an insulin pump), hypertension, and renal cell carcinoma (status post surgery) who presented via EMS after being found unresponsive presumably due to profound
hypoglycemia. His initial blood glucose reading was 25. He was given IV dextrose with improvement in his blood glucose and mental status. His insulin pump was disconnected by EMS. On initial labs he had a mild AUGUSTIN with creatinine of 1.4 which
resolved to within normal limits after IV fluids. He was also briefly hyperkalemic with a potassium of 6.1 which resolved with IV fluids and Lokelma. He had a small abrasion on his forehead likely due to his hypoglycemia induced loss of
consciousness and fall. CT imaging of his brain showed no acute intracranial abnormality. Recommend local wound care as needed with [id number] medications. Reportedly his blood glucose has been recently difficult to control. He was told 2
weeks prior to this event by his document design specialist to adjust his insulin pump settings to a basal rate of 0.65, but had not yet done so. Since hospital admission, he was started on a regimen of long and short acting insulin with guidance from the
diabetes nurse practitioner. His blood glucose has been better controlled. He will be discharged home and restart using his insulin pump with additional long and short acting insulin as needed. He will need to follow-up closely with his
document design specialist for ongoing adjustments to his regimen as needed. He was medically stable at time of hospital discharge.
Referrals:
Darren Roper MD [Family Provider]
Prescriptions:
New
insulin aspart U-100 100 unit/mL (3 mL) Insulin Pen
5 unit SC AC Qty: 15 0RF
insulin glargine [Lantus Solostar U-100 Insulin] 100 unit/mL (3 mL) insulin pen
10 unit SC BID Qty: 15 0RF
Continued
amitriptyline 10 mg tablet
10 mg PO HS
simvastatin 20 mg tablet
20 mg PO HS
omeprazole 20 mg capsule,delayed release(DR/EC)
20 mg PO DAILY
insulin lispro [Humalog U-100 Insulin] 100 unit/mL solution
See Rx Instructions .ROUTE .COMPLEX
Rx Instructions:
variable bolus and basal rates used with pump
tafluprost (PF) 0.0015 % dropperette
1 drp BOTH EYES DAILY
Rx Instructions:
evening
insulin degludec [Tresiba FlexTouch U-100] 100 unit/mL (3 mL) insulin pen
SC
Rx Instructions:
pt states this med is only for use in emergencies
Held
amlodipine 5 mg tablet
5 mg PO DAILY
Hold Instructions: Restart as needed for hypertension, blood pressure currently well-controlled
Rx Instructions:
evening
valsartan-hydrochlorothiazide 320-25 mg tablet
1 tab PO DAILY
Hold Instructions: Restart as needed for hypertension, blood pressures are currently well-controlled
Discharge Orders:
Discharge Patient (As Directed); Ordered 06/11/25
Ordered By: Mario Woods
Discharge Date and Time
Print Language: WOLOF
--- NOTE | 2025-06-11 14:41 | CM ---
Chart reviewed. Patient will d/c today
Met w/ patient bedside, his friend will transport him home
IMM verbally reviewed, copy provided, copy on chart
No CM needs at this time
Plan: Home, no needs
[2025-06-11 14:51] VITALS: BP 148/71
== END 2025-06-11 15:33 | disposition home or self-care (01) | DRG 639 ==
LOC: 4 WEST ACU 23:00
PROVIDERS: Internal Medicine; Physician Assistant Medical; ADMITTING PHYSICIAN Hospitalist; ATTENDING PHYSICIAN Internal Medicine; EMERGENCY PHYSICIAN Emergency Medicine; FAMILY PHYSICIAN Internal Medicine
DX: E10.649 Type 1 diabetes mellitus with hypoglycemia without coma (principal); N17.9 Acute kidney failure, unspecified; I10 Essential (primary) hypertension; E87.5 Hyperkalemia; S01.01XA Laceration without foreign body of scalp, initial encounter; R68.0 Hypothermia, not associated with low environmental temperature; Z96.41 Presence of insulin pump (external) (internal); H40.9 Unspecified glaucoma; W18.30XA Fall on same level, unspecified, initial encounter; D72.829 Elevated white blood cell count, unspecified; Z79.899 Other long term (current) drug therapy; Z85.528 Personal history of other malignant neoplasm of kidney; Z79.4 Long term (current) use of insulin
CPT/HCPCS: 70450; 71045; 80048; 80053; 81003; 81015; 82550; 82947; 82962; 83036; 83605; 83735; 84439; 84443; 84484; 85025; 85027; 85610; 85730; 87040; 87086; 93005; 96360; 99291